=== PATIENT | female | born 1995 | race Two or more races ===

== ENCOUNTER 2017-12-14 22:28 | Emergency (ER) | payer OTHER ==
[~2017-12-14] VITALS: Ht 162.6 cm; Wt 74.0 kg
[2017-12-14] MEDS ORDERED: ONDANSETRON ODT 4 MG ONE (23:42)
[2017-12-14] MEDS ORDERED: HYDROcodone/APAP 5/325 TABLET ONE (23:42)
[2017-12-14] MEDS ORDERED: IBUPROFEN 200 MG TABLET ONE (23:42)
[2017-12-15] MEDS ORDERED: ONDANSETRON ODT 4 MG PO ONE
[2017-12-15] MEDS ORDERED: HYDROcodone/APAP 5/325 TABLET PO ONE
[2017-12-15] MEDS ORDERED: IBUPROFEN 200 MG TABLET PO ONE
[2017-12-15 00:05] VITALS: BP 124/62
== END 2017-12-15 00:07 | disposition home or self-care (01) ==
LOC: ED 23:59
DX: M94.0 Chondrocostal junction syndrome [Tietze] (principal)
CPT/HCPCS: 71101; 93005; 99284; Q0162

== ENCOUNTER 2019-07-18 09:15 | Observation (INO) | payer MEDICAID ==
[~2019-07-18] VITALS: Ht 160 cm; Wt 83.6 kg
[2019-07-18 09:36] VITALS: BP 120/76
[2019-07-18 11:08] LABS: MICROSCOPIC INDICATED
[2019-07-18 11:46] LABS: AMPHETAMINE SCREEN, URINE Negative (Negative); BARBITURATE SCREEN, URINE Negative (Negative); BENZODIAZEPINE SCREEN, URINE Negative (Negative); CANNABINOID SCREEN, URINE Negative (Negative); COCAINE SCREEN, URINE Negative (Negative); METHADONE SCREEN, URINE Negative (Negative); OPIATE SCREEN, URINE Negative (Negative)
== END 2019-07-18 13:12 | disposition home or self-care (01) ==
LOC: LDOP 09:15 → LDIP 10:25
PROVIDERS: ADMIT Obstetrics & Gynecology; ATTEND Obstetrics & Gynecology
DX: O9A.313 Physical abuse complicating pregnancy, third trimester (principal); Y08.89XA Assault by other specified means, initial encounter; Y93.89 Activity, other specified; Y92.89 Other specified places as the place of occurrence of the external cause; Z3A.30 30 weeks gestation of pregnancy
CPT/HCPCS: 36415; 59025; 76815; 80307; 81001; 85460; 87086; 99211; G0378; G0463

== ENCOUNTER 2019-09-13 19:49 | Outpatient (CLI) | payer MEDICAID ==
[~2019-09-13] VITALS: Ht 160 cm; Wt 68.0 kg
[2019-09-13 20:39] VITALS: BP 118/69
== END 2019-09-13 21:35 | disposition home or self-care (01) ==
LOC: LDOP 19:49
PROVIDERS: ATTEND Obstetrics & Gynecology
DX: O42.913 Preterm premature rupture of membranes, unspecified as to length of time between rupture and onset of labor, third trimester (principal); Z3A.38 38 weeks gestation of pregnancy
CPT/HCPCS: 59025; 84112; 89060; 99211; G0463; Q0114

== ENCOUNTER 2019-09-21 04:06 | Inpatient (IN) | payer MEDICAID ==
[~2019-09-21] VITALS: Ht 160 cm; Wt 91.0 kg
[2019-09-21 04:11] VITALS: BP 123/78
[2019-09-21 04:17] VITALS: BP 123/78
[2019-09-21] MEDS ORDERED: OXYTOCIN 30U/ 0.9% NaCL 500ML 500 ML IV ONE (04:23)
[2019-09-21] MEDS: LACTATED RINGERS 1,000 ML IV SCH ×3 (04:23→20:23)
[2019-09-21] MEDS ORDERED: D5%-LACTATED RINGERS 1,000 ML IV SCH (04:23)
[2019-09-21] MEDS ORDERED: FENTANYL PF 100 MCG/2ML IVPush PRN (04:30)
[2019-09-21] MEDS ORDERED: TERBUTALINE 1 MG/ML, 1ML IVPush PRN (04:30)
[2019-09-21] MEDS ORDERED: METOCLOPRAMIDE 5 MG/ML, 2ML IVPush PRN (04:30)
[2019-09-21] MEDS ORDERED: ONDANSETRON 2MG/ML, 2ML IVPush PRN (04:30)
[2019-09-21] MEDS ORDERED: ALUMINUM/MAG/SIMETHICONE 30 ML UDC PO PRN (04:30)
[2019-09-21] MEDS ORDERED: FENTANYL PF 100 MCG/2ML IV PRN (04:30)
[2019-09-21] MEDS ORDERED: CALCIUM CARBONATE 500 MG TAB.CHEW PO PRN (04:30)
[2019-09-21] MEDS ORDERED: TERBUTALINE 1 MG/ML, 1ML SQ PRN (04:30)
[2019-09-21] MEDS ORDERED: SODIUM CITRATE/CITRIC ACID 30 ML UDC PO PRN (04:30)
[2019-09-21] MEDS ORDERED: LIDOCAINE 1%, 20ML ONE (04:31)
[2019-09-21] MEDS ORDERED: MISOPROSTOL 200 MCG TABLET ONE (04:31)
[2019-09-21] MEDS ORDERED: NEWBORN KIT ONE (04:31)
[2019-09-21] MEDS ORDERED: OXYTOCIN 30U/ 0.9% NaCL 500ML 500 ML ONE ×2 (04:31→09:17)
[2019-09-21 05:14] LABS: BASOPHILS # (AUTO) 0.03 x10^3/uL (0-0.1); BASOPHILS % (AUTO) 0 % (0-1); EOSINOPHILS # (AUTO) 0.17 x10^3/uL (0-0.4); EOSINOPHILS % (AUTO) 2 % (1-7); LYMPHOCYTES # (AUTO) 1.85 x10^3/uL (1-3.4); LYMPHOCYTES % (AUTO) 23 % (22-44); MD NO; MEAN CORPUSCULAR HEMOGLOBIN 31.4 pg (27.0-34.8); MEAN CORPUSCULAR HGB CONC 33.1 g/dL (32.4-35.8); MEAN CORPUSCULAR VOLUME 95.1 fL (80-100); MEAN PLATELET VOLUME 8.8 fL (7.4-10.4); MONOCYTES # (AUTO) 0.69 x10^3/uL (0.2-0.8); MONOCYTES % (AUTO) 9 % (2-9); NEUTROPHILS # (AUTO) 5.17 x10^3/uL (1.8-6.8); NEUTROPHILS % (AUTO) 65 % (42-75); PLATELET COUNT 194 x10^3/uL (130-400); RED BLOOD COUNT 4.12 x10^6/uL (3.82-5.3); RED CELL DISTRIBUTION WIDTH 13.6 % (9.6-15.2)
[2019-09-21] MEDS ORDERED: OXYTOCIN 30U/ 0.9% NaCL 500ML 500 ML IV SCH (08:04)
[2019-09-21] MEDS: OXYTOCIN 30U/ 0.9% NaCL 500ML 500 ML IV SCH ×2 (08:04→18:04)
[2019-09-21] MEDS ORDERED: MAGNESIUM HYDROXIDE 8%, 30ML UDC PO PRN (08:30)
[2019-09-21] MEDS ORDERED: METHYLERGONOVINE 0.2 MG/ML IM PRN (08:30)
[2019-09-21] MEDS ORDERED: ONDANSETRON 2MG/ML, 2ML IV PRN (08:30)
[2019-09-21] MEDS ORDERED: OXYcodone IR 5MG TABLET PO PRN (08:30)
[2019-09-21] MEDS ORDERED: OXYcodone/APAP 5/325MG TABLET PO PRN (08:30)
[2019-09-21] MEDS ORDERED: SIMETHICONE 80 MG CHEW TAB PO PRN (08:30)
[2019-09-21] MEDS ORDERED: OXYTOCIN 10 UNITS/ML, 1ML IM PRN (08:30)
[2019-09-21] MEDS ORDERED: DOCUSATE 100 MG CAPSULE PO PRN (08:30)
[2019-09-21] MEDS ORDERED: ACETAMINOPHEN 325 MG TABLET PO PRN (08:30)
[2019-09-21] MEDS ORDERED: PRENATAL VIT/IRON/FA 1 EACH TABLET PO SCH (09:00)
[2019-09-21] MEDS ORDERED: MISOPROSTOL 200 MCG TABLET PR ONE (09:30)
[2019-09-21 10:15] VITALS: BP 122/82
[2019-09-21] MEDS ORDERED: IBUPROFEN 600 MG TABLET ONE (11:19)
[2019-09-21] MEDS: IBUPROFEN 800 MG TABLET PO PRN ×2 (11:30→23:17)
[2019-09-21] MEDS ORDERED: IBUPROFEN 600 MG TABLET PO ONE (12:00)
[2019-09-21] MEDS ORDERED: IBUPROFEN 200 MG TABLET PO ONE (12:00)
[2019-09-21 17:00] VITALS: BP 107/71
[2019-09-21 19:35] VITALS: BP 122/80
[2019-09-21 21:48] LABS: BASOPHILS # (AUTO) 0.03 x10^3/uL (0-0.1); BASOPHILS % (AUTO) 0 % (0-1); EOSINOPHILS % (AUTO) 0 % (1-7); LYMPHOCYTES # (AUTO) 1.86 x10^3/uL (1-3.4); LYMPHOCYTES % (AUTO) 20 % (22-44); MD NO; MEAN CORPUSCULAR HEMOGLOBIN 31.5 pg (27.0-34.8); MEAN CORPUSCULAR HGB CONC 32.9 g/dL (32.4-35.8); MEAN CORPUSCULAR VOLUME 95.8 fL (80-100); MONOCYTES # (AUTO) 0.79 x10^3/uL (0.2-0.8); MONOCYTES % (AUTO) 8 % (2-9); NEUTROPHILS # (AUTO) 6.75 x10^3/uL (1.8-6.8); NEUTROPHILS % (AUTO) 72 % (42-75); PLATELET COUNT 186 x10^3/uL (130-400); RED BLOOD COUNT 3.71 x10^6/uL (3.82-5.3); RED CELL DISTRIBUTION WIDTH 13.6 % (9.6-15.2)
[2019-09-22 00:30] VITALS: BP 105/65
[2019-09-22] MEDS: OXYTOCIN 30U/ 0.9% NaCL 500ML 500 ML IV SCH (04:04)
[2019-09-22] MEDS: LACTATED RINGERS 1,000 ML IV SCH (04:23)
[2019-09-22 04:30] VITALS: BP 112/64
[2019-09-22 08:15] VITALS: BP 130/79
[2019-09-22] MEDS ORDERED: OXYC-302 PO (13:23)
[2019-09-22] MEDS ORDERED: IBUP-1222 PO (13:23)
== END 2019-09-22 15:05 | disposition home or self-care (01) | DRG 807 ==
LOC: LDOP 04:06 → LDIP 04:23 → 2NW 10:01
PROVIDERS: ADMIT Obstetrics & Gynecology; ATTEND Obstetrics & Gynecology
PROC: 10E0XZZ Delivery of Products of Conception, External Approach (ICD-10-PCS; principal; 2019-09-21)
DX: O69.81X0 Labor and delivery complicated by cord around neck, without compression, not applicable or unspecified (principal); Z37.0 Single live birth; Z3A.39 39 weeks gestation of pregnancy
CPT/HCPCS: 36415; 85025; 86850; 86900; G0378; J2590

== ENCOUNTER 2020-10-24 15:05 | Emergency (ER) | payer MEDICAID, OTHER ==
[~2020-10-24] VITALS: Ht 160 cm; Wt 77.6 kg
[~2020-10-24 15:05] MED LIST: IBUP-1222 PO; OXYC1TAB14 PO
--- NOTE | 2020-10-24 15:42 | NUR ---
PT AWAKE AND ALERT, AMBULATED TO BATHROOM WITH STEADY GAIT AND GOOD BALANCE RETURNED SAFELY TO BED, PLACED ON MONITOR. PT REPORTS PAIN IN RUQ RATED 4/10, REPORTS NAUSEA WITHOUT VOMITTING, NORMAL INTAKE AND OUTPUT DENIES DYSURIA. PT IN BED WITH NO SIGNS OR SYMPTOMS OF ACUTE DISTRESS NOTED RESPIRATIONS EVEN AND UNLABORED. CALL LIGHT WITHIN REACH.
--- NOTE | 2020-10-24 16:05 | NUR ---
pt awake and alert in bed no signs or symptoms of acute distress noted respirations even and unlabored. md in to assess, pt with no questions at this time. pt continues on pulse ox and bp cuff, rails up bilaterally and call light within reach. pt denies need at this time.
--- NOTE | 2020-10-24 16:10 | NUR ---
pt awake and alert in bed with no signs or symptoms of acute distress noted respirations even and unlabored, us at bedside.
[2020-10-24 16:12] LABS: MICROSCOPIC INDICATED
[2020-10-24 17:15] LABS: BASOPHILS % (AUTO) 1 % (0-1); EOSINOPHILS % (AUTO) 1 % (1-7); LYMPHOCYTES % (AUTO) 27 % (22-44); MEAN CORPUSCULAR HEMOGLOBIN 31.4 pg (27.0-34.8); MEAN CORPUSCULAR HGB CONC 33.8 g/dL (32.4-35.8); MEAN PLATELET VOLUME 8.1 fL (7.4-10.4); MONOCYTES % (AUTO) 8 % (2-9); NEUTROPHILS % (AUTO) 64 % (42-75); PLATELET COUNT 247 x10^3/uL (130-400); RED BLOOD COUNT 4.19 x10^6/uL (3.82-5.3); RED CELL DISTRIBUTION WIDTH 12.2 % (9.6-15.2)
[2020-10-24 17:17] LABS: MD NO
--- NOTE | 2020-10-24 17:18 | NUR ---
pt sitting upright in bed awake and alert repotrs pain unchanged from arrival denies need at this time. no signs or symptoms of acute distress noted respirations even and unlabored rails up bilaterally and call light within reach
[2020-10-24 17:29] LABS: ALANINE AMINOTRANSFERASE 26 U/L (12-78); ALBUMIN 3.5 g/dL (3.4-5.0); ANION GAP 6 mmol/L (5-15); CALCIUM 9.1 mg/dL (8.5-10.1); CHLORIDE 108 mmol/L (98-107)
[2020-10-24 17:31] LABS: ALKALINE PHOSPHATASE 77 U/L (45-117); BILIRUBIN,TOTAL 0.3 mg/dL (0.2-1.0); TOTAL PROTEIN 7.1 g/dL (6.4-8.2)
[2020-10-24 18:54] VITALS: BP 106/67
== END 2020-10-24 18:58 | disposition home or self-care (01) ==
LOC: ED 18:15
DX: O26.891 Other specified pregnancy related conditions, first trimester (principal); G89.29 Other chronic pain; R10.11 Right upper quadrant pain; R11.0 Nausea; Z3A.08 8 weeks gestation of pregnancy
CPT/HCPCS: 36415; 76700; 80053; 81001; 83690; 85025; 87086; 99284

== ENCOUNTER 2021-03-25 21:08 | Outpatient (CLI) | payer MEDICAID, OTHER ==
[~2021-03-25] VITALS: Ht 160 cm; Wt 83.0 kg
[2021-03-25 21:35] LABS: MICROSCOPIC INDICATED
[2021-03-25 21:41] VITALS: BP 120/68
== END 2021-03-25 22:29 | disposition home or self-care (01) ==
LOC: LDOP 21:08
PROVIDERS: ATTEND Obstetrics & Gynecology
DX: O26.893 Other specified pregnancy related conditions, third trimester (principal); R10.9 Unspecified abdominal pain; Z3A.29 29 weeks gestation of pregnancy
CPT/HCPCS: 59025; 81001; 87086

== ENCOUNTER 2021-05-09 07:46 | Outpatient (CLI) | payer OTHER, MEDICAID ==
[~2021-05-09] VITALS: Ht 160 cm; Wt 86.3 kg
[2021-05-09 08:52] LABS: MICROSCOPIC INDICATED
[2021-05-09] MEDS ORDERED: PREN1TAB10 PO (10:03)
[2021-05-09 10:07] VITALS: BP 103/71
== END 2021-05-09 10:24 | disposition home or self-care (01) ==
LOC: LDOP 07:46
PROVIDERS: ATTEND Obstetrics & Gynecology
DX: O26.893 Other specified pregnancy related conditions, third trimester (principal); Z3A.36 36 weeks gestation of pregnancy
CPT/HCPCS: 59025; 81001; 87086; 87635

== ENCOUNTER 2021-05-28 06:12 | Inpatient (IN) | payer MEDICAID, OTHER ==
[~2021-05-28] VITALS: Ht 160 cm; Wt 86.4 kg
[~2021-05-28 06:12] MED LIST changes: +OXYC1TAB12 PO; -OXYC1TAB14 PO; +PREN1TAB10 PO
[2021-05-28] MEDS ORDERED: NEWBORN KIT ONE (06:23)
[2021-05-28] MEDS ORDERED: LIDOCAINE 1%, 20ML ONE (06:23)
[2021-05-28] MEDS ORDERED: MISOPROSTOL 200 MCG TABLET ONE (06:24)
[2021-05-28] MEDS ORDERED: OXYTOCIN 30U/ 0.9% NaCL 500ML 500 ML ONE ×2 (06:24→07:21)
[2021-05-28] MEDS ORDERED: LACTATED RINGERS 1,000 ML IV SCH (06:30)
[2021-05-28] MEDS ORDERED: ONDANSETRON 2MG/ML, 2ML IVPush PRN (06:30)
[2021-05-28] MEDS ORDERED: TERBUTALINE 1 MG/ML, 1ML IVPush PRN (06:30)
[2021-05-28] MEDS ORDERED: D5%-LACTATED RINGERS 1,000 ML IV SCH (06:30)
[2021-05-28] MEDS ORDERED: FENTANYL PF 100 MCG/2ML IVPush PRN (06:30)
[2021-05-28] MEDS ORDERED: FENTANYL PF 100 MCG/2ML IV PRN (06:30)
[2021-05-28] MEDS ORDERED: TERBUTALINE 1 MG/ML, 1ML SQ PRN (06:30)
[2021-05-28] MEDS ORDERED: IBUPROFEN 600 MG TABLET ONE (07:21)
[2021-05-28] MEDS ORDERED: METOCLOPRAMIDE 5 MG/ML, 2ML IV PRN (07:30)
[2021-05-28] MEDS ORDERED: CARBOPROST TROMETHAMINE 250 MCG/ML, 1ML IM PRN (07:30)
[2021-05-28] MEDS ORDERED: SIMETHICONE 80 MG CHEW TAB PO PRN (07:30)
[2021-05-28] MEDS ORDERED: OXYcodone/APAP 5/325MG TABLET PO PRN ×2 (07:30)
[2021-05-28] MEDS: IBUPROFEN 600 MG TABLET PO PRN ×3 (07:30→20:58)
[2021-05-28] MEDS: OXYTOCIN 30U/ 0.9% NaCL 500ML 500 ML IV SCH ×2 (07:30→17:30)
[2021-05-28] MEDS ORDERED: MISOPROSTOL 200 MCG TABLET PR PRN (07:30)
[2021-05-28] MEDS: PRENATAL VIT/IRON/FA 1 EACH TABLET PO SCH (09:00)
[2021-05-28 09:12] VITALS: BP 112/72
[2021-05-28 13:41] VITALS: BP 107/68
[2021-05-28 14:59] LABS: BASOPHILS % (AUTO) 0 % (0-1); EOSINOPHILS % (AUTO) 0 % (1-7); LYMPHOCYTES % (AUTO) 19 % (22-44); MEAN CORPUSCULAR HEMOGLOBIN 29.9 pg (27.0-34.8); MEAN CORPUSCULAR HGB CONC 33.3 g/dL (32.4-35.8); MONOCYTES % (AUTO) 7 % (2-9); NEUTROPHILS % (AUTO) 73 % (42-75); PLATELET COUNT 196 x10^3/uL (130-400); RED BLOOD COUNT 4.28 x10^6/uL (3.82-5.3); RED CELL DISTRIBUTION WIDTH 14.6 % (9.6-15.2)
[2021-05-28] MEDS ORDERED: ACETAMINOPHEN 325 MG TABLET ONE (15:11)
[2021-05-28] MEDS ORDERED: ACETAMINOPHEN 325 MG TABLET PO PRN (15:30)
[2021-05-28 18:36] VITALS: BP 118/78
[2021-05-28] MEDS: DOCUSATE 100 MG CAPSULE PO PRN (20:57)
[2021-05-29] MEDS: OXYTOCIN 30U/ 0.9% NaCL 500ML 500 ML IV SCH (03:30)
[2021-05-29 07:34] VITALS: BP 119/78
[2021-05-29] MEDS: IBUPROFEN 600 MG TABLET PO PRN (07:44)
[2021-05-29] MEDS: PRENATAL VIT/IRON/FA 1 EACH TABLET PO SCH (07:45)
[2021-05-29] MEDS: DOCUSATE 100 MG CAPSULE PO PRN (07:45)
[2021-05-29] MEDS ORDERED: MEASLES,MUMPS&RUBELLA VACC/PF 0.5 ML SQ-VACC ONE ×2 (11:02→11:30)
== END 2021-05-29 11:40 | disposition home or self-care (01) | DRG 807 ==
LOC: LDOP 06:12 → LDIP 06:23 → 2NW 08:43
PROVIDERS: ADMIT Obstetrics & Gynecology; ATTEND Obstetrics & Gynecology
PROC: 10E0XZZ Delivery of Products of Conception, External Approach (ICD-10-PCS; principal; 2021-05-28)
PROC: 0HQ9XZZ Repair Perineum Skin, External Approach (ICD-10-PCS; 2021-05-28)
DX: O70.0 First degree perineal laceration during delivery (principal); Z37.0 Single live birth; Z3A.39 39 weeks gestation of pregnancy; Z23 Encounter for immunization; Z20.822 Contact with and (suspected) exposure to COVID-19
CPT/HCPCS: 36415; 85025; 87635; 90707; G0378; J2590; J7120